=== PATIENT | male | born 1965 | race Caucasian/White ===

== ENCOUNTER 2017-01-10 17:26 | Emergency (ER) | payer OTHER ==
[~2017-01-10] VITALS: Ht 175.3 cm; Wt 99.0 kg
[~2017-01-10 17:26] MED LIST: AMLODIPINE-BEN1 EAC2 PO; ASPIRIN325 MG PO; CELEXA20 MG PO; CITALOPRAM HBR40 MG PO; CLONAZEPAM0.5 MG PO; DULOXETINE HCL60 MG PO; GABAPENTIN800 MG PO; OXYCODONE-APAP1 EACH PO; OXYCONTIN40 MG PO; PERCOCET 10-321 EACH PO; REMERON15 M2 PO; [UNRECOGNIZED DRUG - REMARK]
[2017-01-10 18:17] LABS: MCH 32.7 PG (29.0-34.0); MCHC 36.5 G/DL (30.0-36.0); MCV 89.7 FL (86-99); MEAN PLAT.VOLUME 12.2 uM^3 (9.0-12.4); PLATELET COUNT 190 K/uL (156-360); RBC DIS.WIDTH-CV 12.4 % (11.8-14.6); RBC DIS.WIDTH-SD 40.1 % (39-53); RED BLOOD COUNT 5.13 M/uL (4.00-5.50); WHITE BLOOD COUNT 13.3 K/uL (4.1-10.2)
[2017-01-10 18:46] LABS: CHLORIDE 107 mEq/L (99-109); POTASSIUM 3.2 mEq/L (3.7-5.4); SODIUM 140 mEq/L (136-147)
[2017-01-10 18:47] LABS: GLUCOSE 107 mg/dL (70-99)
[2017-01-10 18:49] LABS: ANION GAP 14 MEQ/L (2-14)
[2017-01-10 18:51] LABS: GFR ESTIMATE (CALCULATED) > 59 mL/min/
[2017-01-10 18:52] LABS: UREA NITROGEN (BUN) 16 mg/dL (9-23)
[2017-01-10 19:33] LABS: TOTAL BILIRUBIN 1.1 mg/dL (0.0-1.0)
[2017-01-10 19:35] LABS: ALKALINE PHOSPHATASE 28 IU/L (3-129)
[2017-01-10 19:37] LABS: DIRECT BILIRUBIN 0.4 mg/dL (0.0-0.3)
[2017-01-10 19:38] LABS: LIPASE 7 U/L (1.0-51.0)
[2017-01-10] MEDS ORDERED: ZOFRAN ODT4 MG PO (23:03)
[2017-01-10] MEDS ORDERED: CIPRO500 MG PO (23:03)
[2017-01-10] MEDS ORDERED: FLAGYL500 MG PO (23:03)
[2017-01-10 23:42] VITALS: BP 119/74
== END 2017-01-10 23:44 | disposition home or self-care (01) ==
LOC: EME 17:26
DX: K52.9 Noninfective gastroenteritis and colitis, unspecified (principal); M54.5 Low back pain; G89.29 Other chronic pain; E78.5 Hyperlipidemia, unspecified; I10 Essential (primary) hypertension
CPT/HCPCS: 74177; 80048; 80076; 81003; 83690; 85027; 99281; 99285; J2270; J2405; J7030